=== PATIENT | male | born 2000 | race African-American/Black ===

== ENCOUNTER 2025-05-15 00:36 | Emergency (ER) | payer OTHER ==
[~2025-05-15] VITALS: Ht 182.9 cm; Wt 78.2 kg
[2025-05-15 02:04] LABS: BASO # 0.0 10^3/uL (0.0-0.2); BASO % 0.4 % (0.0-1.0); EOS # 0.2 10^3/uL (0.0-0.5); EOS % 3.5 % (0.0-3.0); LYMPH # 2.5 10^3/uL (1.5-5.0); LYMPH % 35.9 % (24.0-44.0); MONO # 0.8 10^3/uL (0.0-0.8); MONO % 12.1 % (2.0-8.0); NEUTROPHILS # 3.3 10^3/uL (1.5-8.5); NEUTROPHILS % 47.8 % (36.0-66.0); PLATELET COUNT, AUTOMATED 259 10^3/uL (150-450)
[2025-05-15 02:26] LABS: CPK CREATINE PHOSPHOKINASE 182 U/L (46-171)
[2025-05-15 02:27] LABS: CK-MB VALUE MASS < 1.0 NG/ML (<3.6)
[2025-05-15] MEDS: KETOROLAC 30 MG/ML 1 ML VIAL IV ONE (02:49)
[2025-05-15 03:29] LABS: ALT/SGPT 414 U/L (7.0-40); AST/SGOT 566 U/L (<34); CALCIUM LEVEL 9.4 MG/DL (8.5-10.1); CARBON DIOXIDE LEVEL 27 MMOL/L (20-31); CHLORIDE LEVEL 101 MMOL/L (98-107); CK-MB VALUE MASS < 1.0 NG/ML (<3.6); CPK CREATINE PHOSPHOKINASE 150 U/L (46-171); CREATININE FOR GFR 1.05 MG/DL (0.70-1.30); GLOMERULAR FILTRATION RATE > 90.0 (>60); POTASSIUM SERUM 4.0 MMOL/L (3.5-5.1); SODIUM LEVEL 140 MMOL/L (136-145)
[2025-05-15] MEDS ORDERED: ISOVUE-370 76% 100 ML VIAL As Ordered ONE (03:31)
[2025-05-15] MEDS ORDERED: FAMO10TA50 PO (09:43)
[2025-05-15] MEDS ORDERED: CARA1TAB6 PO (09:44)
[2025-05-15 10:00] VITALS: BP 119/70; TEMP 97.9; O2SAT 99
[2025-05-15 10:10] LABS: HEPATITIS C VIRUS ABY INDEX < 0.02 INDEX (<0.8)
== END 2025-05-15 10:01 | disposition home or self-care (01) ==
LOC: M ED 00:36
DX: R10.9 Unspecified abdominal pain (principal); R74.01 Elevation of levels of liver transaminase levels; Z79.899 Other long term (current) drug therapy
CPT/HCPCS: 71045; 74177; 76705; 80048; 80074; 80076; 82550; 82553; 83690; 84484; 85025; 93005; 93041; 94760; 96374; 99285; J1885; Q9967